=== PATIENT | female | born 1985 | race African-American/Black ===

== ENCOUNTER 2016-03-13 06:13 | Inpatient (IN) | payer BC, OTHER ==
[~2016-03-13] VITALS: Ht 154.9 cm; Wt 106.1 kg
[~2016-03-13 06:13] MED LIST: IRON325 MG PO; Motrin PO; PRENATAL TABLE1 EAC3 PO; TYLENOL EXTRA500 MG PO; Tylenol Extra Streng PO
[2016-03-13 08:14] VITALS: BP 129/74
[2016-03-13 08:24] LABS: EOSINOPHIL (%) 1.9 % (0-5); EOSINOPHIL COUNT 0.2 K/uL (0-0.3); HEMATOCRIT 32.8 % (36.0-46.0); IMMATURE GRANULOCYTE (%) 0.5 % (0.0-0.7); MCH 27.1 PG (29.0-34.0); MCHC 34.5 G/DL (30.0-36.0); MCV 78.7 FL (83-99); MEAN PLAT.VOLUME 10.2 uM^3 (9.5-12.4); MONOCYTE (%) 8.5 % (3-12); MONOCYTE COUNT 0.7 K/uL (0-0.8); NEUTROPHIL (%) 64.6 % (45-76); NEUTROPHIL COUNT 5.5 K/uL (1.8-6.4); PLATELET COUNT 282 K/uL (156-360); RBC DIS.WIDTH-CV 14.8 % (11.8-14.6); RBC DIS.WIDTH-SD 41.7 % (39-53); RED BLOOD COUNT 4.17 M/uL (3.80-5.20); WHITE BLOOD COUNT 8.5 K/uL (4.1-10.2)
[2016-03-13 15:12] LABS: HEMATOCRIT 32.4 % (36.0-46.0); MCV 80.4 FL (83-99)
[2016-03-13 15:21] VITALS: BP 131/74
[2016-03-13 17:25] VITALS: BP 146/86
[2016-03-13 21:38] VITALS: BP 117/55
[2016-03-14 05:18] VITALS: BP 112/55
[2016-03-14 06:46] LABS: EOSINOPHIL (%) 0.5 % (0-5); EOSINOPHIL COUNT 0.1 K/uL (0-0.3); HEMATOCRIT 22.7 % (36.0-46.0); IMMATURE GRANULOCYTE (%) 0.5 % (0.0-0.7); IMMATURE GRANULOCYTE COUNT 0.1 K/uL; LYMPHOCYTE COUNT 1.4 K/uL (1.0-2.8); MCH 28.3 PG (29.0-34.0); MCHC 36.1 G/DL (30.0-36.0); MCV 78.3 FL (83-99); MONOCYTE (%) 9.1 % (3-12); MONOCYTE COUNT 1.4 K/uL (0-0.8); NEUTROPHIL COUNT 12.5 K/uL (1.8-6.4); RBC DIS.WIDTH-CV 14.9 % (11.8-14.6); RBC DIS.WIDTH-SD 42.9 % (39-53); WHITE BLOOD COUNT 15.4 K/uL (4.1-10.2)
[2016-03-14 07:45] VITALS: BP 117/56
[2016-03-14 09:17] LABS: PLAT.SUFFICIENCY ADEQUATE; USER ID MCB
[2016-03-14 11:02] VITALS: BP 123/56
[2016-03-14 15:05] VITALS: BP 141/76
[2016-03-14 23:30] VITALS: BP 114/80
[2016-03-15 07:41] VITALS: BP 136/65
[2016-03-15 11:46] VITALS: BP 136/78
[2016-03-15 14:43] VITALS: BP 137/83
[2016-03-15 20:00] VITALS: BP 132/75
[2016-03-16] VITALS (7 sets, daily range): BP systolic 125–141; BP diastolic 64–86
[2016-03-17 04:25] VITALS: BP 134/75
[2016-03-17 07:50] VITALS: BP 132/73
[2016-03-17] MEDS ORDERED: ENDOCET 5-3251 EACH PO (09:31)
[2016-03-17] MEDS ORDERED: IBUPROFEN800 MG PO (09:31)
[2016-03-17 11:16] VITALS: BP 129/80
== END 2016-03-17 14:00 | disposition home or self-care (01) | DRG 765 ==
LOC: 2WEST 06:13 → 2SOUTH 08:42 → 2WEST 03-17 14:00
PROVIDERS: Obstetrics & Gynecology
DX: O32.1XX2 Maternal care for breech presentation, fetus 2 (principal); O72.1 Other immediate postpartum hemorrhage; O30.043 Twin pregnancy, dichorionic/diamniotic, third trimester; D62 Acute posthemorrhagic anemia; Z37.2 Twins, both liveborn; O13.4 Gestational [pregnancy-induced] hypertension without significant proteinuria, complicating childbirth; O90.81 Anemia of the puerperium; O99.214 Obesity complicating childbirth; Z3A.39 39 weeks gestation of pregnancy; O99.89 Other specified diseases and conditions complicating pregnancy, childbirth and the puerperium; N73.6 Female pelvic peritoneal adhesions (postinfective); O34.211 Maternal care for low transverse scar from previous cesarean delivery; N85.8 Other specified noninflammatory disorders of uterus; D58.2 Other hemoglobinopathies; O34.593 Maternal care for other abnormalities of gravid uterus, third trimester; Z30.2 Encounter for sterilization
CPT/HCPCS: 85014; 85018; 85025; 86850; 86900; 86901; 86920; 88302; 88307; J0690; J1100; J1885; J2210; J2270; J2274; J2405; J3010; J7120; P9016